=== PATIENT | male | born 1995 | race Caucasian/White ===

== ENCOUNTER 2024-12-22 08:37 | Outpatient (AMB) | payer BC, SELFPAY ==
--- NOTE | 2024-12-22 08:40 | MHC.OFFVIS ---
Vital Signs 12/22/24 08:45 Height 5 ft 10 in Weight 198 lb BMI 28.4 BP 119/61 Blood Pressure Location Lt brachial Position Sitting Pulse 73 Pulse Oximetry (%) 97 Oxygen Delivery Method Room Air Intake Visit Reasons: Gastroesophageal reflux disease (GERD) Intake Note: Patient new consult for Gastroesophageal reflux disease (GERD). Patient cc: acid reflux with burning sensation on and off, occasional diarrhea and some irritation on the back of his throat. 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 Accompanied by: Self / Same As Patient Allergies cat dander (cats) Allergy (Intermediate, Verified 12/22/24 08:47) Sneezing dog dander Allergy (Intermediate, Verified 12/22/24 08:47) Sneezing Seasonal Allergies Allergy (Intermediate, Verified 12/22/24 08:47) Unknown Medication List - Last Reconciled 12/22/24 by Amina Michelle CNP bupropion HCl XL 300 mg PO DAILY cholecalciferol (vitamin D3) 25 mcg PO DAILY fexofenadine 180 mg PO DAILY fluticasone propionate 50 mcg/actuation (Flonase Allergy Relief) 2 sprays intranasal DAILY lisdexamfetamine 30 mg PO DAILY HPI HPI Gastroesophageal reflux disease (GERD): Details: Patient is a 29-year-old male with PMH of asthma, ADHD, anxiety, depression, seasonal allergies and GERD . Referred by PCP for further evaluation of GERD. Ramakrishna has experienced acid reflux since his teenage years. He has been managing it with omeprazole for the past 10 years, taking 20mg daily. Recently, his symptoms have worsened, especially over the past year or two, but he has occasionally increased the dose to twice daily without significant relief. He supplements with famotidine or antacids roughly three to four times a week. Ramakrishna notes a possible correlation between starting Vyvanse and an increase in heartburn. Eating food before taking Vyvanse helps. He experiences mild, occasional regurgitation without frequent food or liquid reflux. He has a chronic cough that may be related to acid reflux, but no difficulty swallowing or shortness of breath. No significant changes in bowel movements besides occasional constipation and diarrhea with certain foods, like tomato sauce. History of previously elevated LFTs noted on one occasion; abdominal US at that time was unremarkable per PCP records. Repeat LFTs subsequently normalized per patient, with most recent labs within the current year reported as normal. No ongoing hepatic symptoms or concerns. Patient denies: fever/chills, n/v, appetite changes, dysphasia, cardiopulmonary symptoms, unintentional wt loss, ab pain or melena/hematochezia. Social History - Diet: Generally consumes chicken, rice, lisa peppers, pasta with tomato sauce, ground pork, peanut butter crackers, water - Alcohol Use: Infrequent, about once a month, typically beer or similar, three to four drinks - Tobacco Use: None - Drug Use: Occasional use of THC and CBD gummies for anxiety, less frequent since starting Vyvanse - Occupation: Works from home - family hx as below - denies personal hx of CA - significant cardiopulmonary history -tolerated anesthesia in the past without difficulty. [facility] Medical History (Updated 12/22/24 @ 09:46 by Amina Michelle CNP) Asthma Acid reflux Surgical History Hx of nasal septoplasty Family History Mother Allergic rhinitis Father Urticaria Fibromyalgia Sister Allergic rhinitis Fibromyalgia Asthma Social History Household Members: None Alcohol intake: never Patient Tobacco Use Status: Never used Tobacco Substance Use Type: Marijuana Physical Exam Vital Signs: Last Vital Signs Pulse 73 12/22/24 08:45 BP 119/61 12/22/24 08:45 Pulse Ox 97 12/22/24 08:45 Oxygen Delivery Method Room Air 12/22/24 08:45 BMI result Body Mass Index 28.4 Assessment & Plan Assessment & Plan (1) Acid reflux: Code(s): K21.9 - Gastro-esophageal reflux disease without esophagitis Category: Medical Qualifiers: Esophagitis presence: esophagitis presence not specified Qualified Code(s): K21.9 - Gastro-esophageal reflux disease without esophagitis Plan: longstanding, worsening reflux symptoms despite chronic PPI therapy, with incomplete response to dose escalation and adjunctive H2RA/antacids. Chronicity and partial response warrant further evaluation for complications (e.g., erosive esophagitis, Small?s) and consideration of PPI class switch for tachyphylaxis. Additional Tests: Schedule upper endoscopy to assess for mucosal changes, rule out complications (Small?s, erosive esophagitis, stricture). Medications: - Discontinue omeprazole. - Start pantoprazole 20mg PO QD; may increase to 40mg QD after 2 weeks if inadequate response. - Continue famotidine PRN for breakthrough symptoms, preferably at bedtime. Encouraged to take pantoprazole as prescribed, taken at least 30-60 minutes before a meal. Education on GERD prevention : -Advised against heavy meals; encouraged small, frequent meals instead of large ones. - Instructed to remain upright for 2?3 hours after eating. - Advised to avoid late-night meals, spicy foods, caffeine, alcohol, known dietary triggers, and tight-fitting clothing. - Emphasis placed on gradual implementation of lifestyle changes to improve adherence and symptom control. (2) Asthma: Code(s): J45.909 - Unspecified asthma, uncomplicated Category: Medical Qualifiers: Asthma severity: unspecified severity Asthma persistence: unspecified Asthma complication type: uncomplicated Qualified Code(s): J45.909 - Unspecified asthma, uncomplicated Plan: History of asthma, currently asymptomatic and not requiring medication. Chronic cough likely related to GERD. Additional Tests: None indicated at this time. Medications: None required. Lifestyle Modifications: Monitor for new or worsening respiratory symptoms; report if present. Follow-Up: With PCP as needed for respiratory changes. (3) Bruise: Code(s): T14.8XXA - Other injury of unspecified body region, initial encounter Plan: Localized ecchymosis post-phlebotomy to left AC region, no signs of infection. Additional Tests/Medications: None required. Lifestyle Modifications: Monitor for signs of infection (erythema, warmth, swelling, pain); follow up with PCP if these develop. Plan follow up after endoscopy or sooner as needed Time: I spent a total of 35 minutes on the date of encounter which includes: Preparing to see the patient (reviewed previous documentation, test results and medical history) Performing a medically appropriate exam and/or evaluation Ordering medications, tests, and procedures Documenting clinical information in the health record Medications: New pantoprazole Take on tablet daily, can increase to two tablets daily if not effective after two weeks. 20 mg PO DAILY 90 tabs 0RF Coding Level of Care Code New Pt New Pt Level 3 (86878) Patient Type New Diagnoses Gastroesophageal reflux disease, unspecified whether esophagitis present K21.9 Esophagitis presence: esophagitis presence not specified Uncomplicated asthma, unspecified asthma severity, unspecified whether persistent J45.909 Asthma severity: unspecified severity Asthma persistence: unspecified Asthma complication type: uncomplicated Bruise T14.8XXA
[2024-12-22 08:45] VITALS: BP 119/61; PULSE 73; O2SAT 97; BMI 28.4
== END 2024-12-22 09:30 | disposition home or self-care (01) ==
LOC: HO.HGI 08:37
PROVIDERS: PCP Internal Medicine; Visit Provider Nurse Practitioner Family
DX: K21.9 Gastro-esophageal reflux disease without esophagitis (principal); J45.909 Unspecified asthma, uncomplicated; T14.8XXA Other injury of unspecified body region, initial encounter
CPT/HCPCS: 99203

== ENCOUNTER → 2024-12-22 08:37 | Outpatient (BNVA) | payer BC, SELFPAY | PROVIDERS: PCP Internal Medicine; Visit Provider Nurse Practitioner Family ==

== ENCOUNTER 2025-03-12 10:03 | Day surgery (SDC) | payer BC, SELFPAY ==
[2025-03-08 14:24] VITALS: BMI 28.4
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
--- NOTE | 2025-03-12 11:19 | MHC.SHP ---
Pre-Procedural Eval Section A - 24 Hr Update-Section A only Date of Service: 03/12/25 Section B - Complete if H&P > 30 days Chief Complaint: gerd, Relevant Family History (Specify if Yes): No Relevant Social History: None Present Medications: see Short Stay Collaborative assessment Medical History: Significant History (Asthma Acid reflux) History of Previous Operations: Relevant previous surgery/procedure and date(s) (Hx of nasal septoplasty) Allergies: Allergies Allergy/AdvReac Type Severity Reaction Status Date / Time cat dander (cats) Allergy Intermediate Sneezing Verified 12/22/24 08:47 dog dander Allergy Intermediate Sneezing Verified 12/22/24 08:47 Seasonal Allergies Allergy Intermediate Unknown Verified 12/22/24 08:47 Review of Systems Sugical H&P ROS: Negative: Constitution, Cardiovascular and Respiratory and Yes, Specify: Gastrointestinal (heartburn) Exam Surgical H&P Exam: Normal: Heart, Normal: Lungs, Normal: Extremities and Normal: Abdomen Plan Diagnosis/Plan: Unchanged I have reviewed the history and physical and performed a pertinent physical examination on my patient. No changes have occurred unless specified. Time Spent With Patient Time: Total time managing care of this patient today ____ minutes.
[2025-03-12 11:33] VITALS: BMI 27.8
[2025-03-12 11:45] VITALS: BP 127/79; PULSE 81; RESP 18; TEMP 36.6; O2SAT 99
[2025-03-12] MEDS: Lactated Ringers 1,000 ML 80 ML IVCONT (11:45)
--- NOTE | 2025-03-12 12:48 | HO.ANESPROP2 ---
[facility] Active Problems Active Problems: All Active Problems (Updated 12/22/24 @ 09:46 by Amina Michelle CNP) Asthma (Acute) Acid reflux (Acute) Past Medical History Medical History Asthma Acid reflux Functional capacity: independent ambulation Family History Family History Mother Allergic rhinitis Father Urticaria Fibromyalgia Sister Allergic rhinitis Fibromyalgia Asthma Family history of problems with anesthesia: No Surgical History Surgical History Hx of nasal septoplasty History of Problems with Anesthesia: No Social History Social History Household Members: None Are you a primary rn care manager to a significant other at home: No Do you presently have visiting nurse or other home services: No Alcohol intake: never Patient Tobacco Use Status: Never used Tobacco Substance Use Type: Marijuana Substance Use Frequency: Occasionally Have you been hit, kicked, punched, or otherwise hurt by someone within the past year? If so, by whom?: No Are you DNR?: No Advance Directives: No Advance Directives Information Provided: Yes Poor oral hygiene: No Meds Allergies Allergy/AdvReac Type Severity Reaction Status Date / Time cat dander (cats) Allergy Intermediate Sneezing Verified 03/12/25 11:36 dog dander Allergy Intermediate Sneezing Verified 03/12/25 11:36 Seasonal Allergies Allergy Intermediate Unknown Verified 03/12/25 11:36 Active Medications: Current Medications Lactated Ringer's (Lr) 1,000 mls @ 80 mls/hr IVCONT .[id number] JEAN CLAUDE Last Admin: 03/12/25 11:45 Dose: 80 mls/hr Home Medications ?Medication ?Instructions ?Recorded ?Confirmed ?Last Taken ?Type bupropion HCl 300 mg 24 hr tablet, 300 mg PO DAILY 12/22/24 03/12/25 Unknown History extended release cholecalciferol (vitamin D3) 25 25 mcg PO DAILY 12/22/24 03/12/25 Unknown History mcg (1,000 unit) capsule fexofenadine 180 mg tablet 180 mg PO DAILY 12/22/24 03/12/25 Unknown History fluticasone propionate 50 2 spray intranasal DAILY 12/22/24 03/12/25 Unknown History mcg/actuation nasal spray,suspension (Flonase Allergy Relief) lisdexamfetamine 50 mg capsule 50 mg PO DAILY 03/12/25 03/12/25 Unknown History Exam Height,Weight and Vital Signs: Height 5 ft 10 in Weight 194 lb 0.108 oz Last Vital Signs Temp 97.9 F 03/12/25 11:45 Pulse 81 03/12/25 11:45 Resp 18 03/12/25 11:45 BP 127/79 03/12/25 11:45 Pulse Ox 99 03/12/25 11:45 O2 Del Method Room Air 03/12/25 11:45 Airway Mallampati Class: II TM Dist: >3cm Neck ROM: Full Loose/Missing/Broken Teeth: No Heart: RRR Lungs: CTA Assessment and Plan Final Anesthetic Review Family History of Problems with Anesthesia: No History of Problems with Anesthesia: No NPO: Yes ASA Class: II Final Preanesthetic Review: No Changes in Pt Med Stat, Meds/Allgs Chart Reviewed, Consent Obtained/Reviewed and Anes Risks/Benef Reviewed Patient Risk: Low Procedure Risk: Low Anesthetic Plan Anesthetic Plan: MAC: Disposition: Standard PACU
--- NOTE | 2025-03-12 13:37 | W.PM.OPN ---
Operative Note Operative Note Date of Service: 03/12/25 Narrative: FLEXIBLE TRANSORAL UPPER GASTROINTESTINAL ENDOSCOPY WITH BIOPSIES AND SNARE POLYPECTOMY OF GASTRIC POLYP Pre-op diagnosis: GERD Post-op diagnosis: GERD, Gastritis, gastric polyps Endoscopist:? Josep Benoit MD Anesthesia:?MAC UPPER ENDOSCOPY Consent: Indications for the procedure and potential complications of bleeding, perforation, reaction to medications and missed diagnosis were discussed with the patient and informed consent was obtained. Instrument: Olympus GIF H 190 mid size upper endoscope Monitoring: Vital signs and clinical assessment, continuous EKG monitoring, Pulse oximetry, Carbon Dioxide monitoring and blood pressure monitoring were done throughout the procedure. Procedure: The patient was placed in the left lateral decubitis position and pre-procedure medications were administered and a bite block was placed. The endoscope was inserted into the mouth and advanced under direct vision to the third part of duodenum. A careful inspection was made as the upper endoscope was withdrawn including a retroflexed examination of the proximal stomach; Findings and interventions are described below. Findings: Larynx: Normal Esophagus: GE junction at 40 cms. No esophagitis. Irregular Z line - biopsied to check for Barretts. Biopsies were obtained from distal esophagus to check for esophagitis. Stomach: A few 4-5 mm benign appearing polyps in the stomach, A 15 mm polyp was removed from the distal body with a hot snare and retrieved with a Rogers net. Moderate diffuse gastric erythema - biopsies were obtained from the antrum. Grade 2 flap valve on retroflexed examination of the cardia. Duodenum: Normal bulb and descending duodenum Intervention: Biopsies as noted above Impression and Post Procedure Diagnosis: Endoscopy Findings: ESOPHAGUS: Irregular Z line - biopsied to check for Barretts. STOMACH: Diffuse gastritis and benign-appearing gastric polyps. DUODENUM: Normal Plan: Pt has a FU appointment on 04/12/25 with Amina Michelle NP. Above findings were reviewed with the patient and relevant handouts were given and the discharge area. BIOPSIES SHOWED: A. Stomach, antrum, biopsy: Gastric antral mucosa within normal limits; negative for Helicobacter pylori, intestinal metaplasia and dysplasia. B. Stomach, body, biopsy: Gastric body mucosa within normal limits; negative for Helicobacter pylori, intestinal metaplasia and dysplasia. C. Stomach, polyp, polypectomy: Fundic gland polyp. D. Gastroesophageal junction, biopsy: Gastric cardia-type mucosa with mild chronic inflammation; no squamous mucosa seen; negative for intestinal metaplasia and dysplasia. E. Esophagus, distal, biopsy: Squamous mucosa within normal limits; negative for inflammation (including intraepithelial eosinophils), fungal organisms, intestinal metaplasia and dysplasia.
[2025-03-12 13:42] VITALS: BP 126/51; PULSE 81; RESP 16; TEMP 36.4; O2SAT 98
[2025-03-12 13:55] VITALS: BP 111/62; PULSE 83; RESP 18; TEMP 36.3; O2SAT 95
== END 2025-03-12 14:33 | disposition home or self-care (01) ==
PROVIDERS: PCP Internal Medicine; Visit Provider Internal Medicine Gastroenterology
PROC: 0DJ08ZZ Inspection of Upper Intestinal Tract, Via Natural or Artificial Opening Endoscopic (ICD-10-PCS; CPT 43235; principal; 2025-03-12 12:00)
DX: K21.9 Gastro-esophageal reflux disease without esophagitis (principal); K31.7 Polyp of stomach and duodenum; K29.60 Other gastritis without bleeding; J45.909 Unspecified asthma, uncomplicated; F12.90 Cannabis use, unspecified, uncomplicated
CPT/HCPCS: 43251; 43239; 88305; 88313; 88342; J2003; J2704

== ENCOUNTER → 2025-03-12 10:03 | Outpatient (BNV) | payer BC, SELFPAY | PROVIDERS: PCP Internal Medicine; Visit Provider Internal Medicine Gastroenterology | DX: K21.9 Gastro-esophageal reflux disease without esophagitis (principal); K29.70 Gastritis, unspecified, without bleeding; K31.7 Polyp of stomach and duodenum | CPT/HCPCS: 43239; 43251 ==

== ENCOUNTER 2025-04-12 12:58 | Outpatient (AMB) | payer BC, SELFPAY ==
--- NOTE | 2025-04-12 13:07 | A.OFFVIS_ITS ---
Vital Signs 04/12/25 13:08 Height 5 ft 10 in Weight 185 lb BMI 26.5 BP 112/63 Blood Pressure Location Lt brachial Position Sitting Pulse 89 Pulse Oximetry (%) 98 Oxygen Delivery Method Room Air Intake Visit Reasons: s/p EGD Cy Intake Note: Patient follow upie for acid reflux and EGD results Patient cc: acid reflux and denies any other GI issues for today. 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 Persistent daily reflux sxs despite med trials, requesting review of mgmt and further tx options. Pt has ongoing reflux sxs the majority of days, often requiring rescue acid suppression. Dietary modifications trialed (increased bananas, oatmeal, avoidance of spicy/acidic foods, tomatoes, onions, carbonation, alcohol), w/ mild improvement at best. Pippa herbal tea exacerbated sxs?discontinued. Compliance w/ omeprazole 40 mg QAM remains high; formotidine taken intermittently BID when symptomatic, but not routinely QHS as instructed. Previously trialed pantoprazole w/ increased sxs, switched back to omeprazole. No dysphagia, weight appears possibly decreased (~10 lbs per chart, pt uncertain but noted smaller meals recently). Bowel habits unchanged (soft, regular, 3?4x/day), improved ease of BM w/ increase fiber. No constipation. No hospitalizations, flares, or new alarming GI sxs reported. [facility] Medical History (Updated 04/12/25 @ 14:06 by Amina Michelle CNP) Asthma Acid reflux Surgical History History of esophagogastroduodenoscopy (EGD) Hx of nasal septoplasty Family History Mother Allergic rhinitis Father Urticaria Fibromyalgia Sister Allergic rhinitis Fibromyalgia Asthma Social History Household Members: None Are you a primary child care nurse to a significant other at home: No Do you presently have visiting nurse or other home services: No Alcohol intake: never Patient Tobacco Use Status: Never used Tobacco Substance Use Type: Marijuana Review of Systems Const Reports as per HPI ENT Reports as per HPI Card Reports as per HPI Resp Reports as per HPI GI Reports as per HPI Reports as per HPI Physical Exam Vital Signs: Last Vital Signs Pulse 89 04/12/25 13:08 BP 112/63 04/12/25 13:08 Pulse Ox 98 04/12/25 13:08 Oxygen Delivery Method Room Air 04/12/25 13:08 BMI result Body Mass Index 26.5 Const General: healthy appearing, no acute distress and well developed Nutritional Appearance: average body habitus Orientation/consciousness: patient oriented x3 HEENT Head: Yes normal to inspection, Yes normocephalic and Yes atraumatic Face and sinus: Yes normal facial exam Eyes General: appearance normal, both eyes and all related structures Neck Neck: Yes normal visual inspection Resp Effort & Inspection: normal respiratory effort, able to speak in complete sentences, no tracheal deviation and symmetric chest movement Cardio Jugular venous distension: no JVD GI Inspection: Yes normal to inspection and No distended Palpation (GI): Soft to palpation, not firm, nontender and No hepatosplenomegaly present Auscultation: normal bowel sounds Neuro General: patient oriented x3 Gait exam (Neuro): Normal gait present Psych Appearance: grossly normal Mental Status: mental status grossly normal Speech and movement: Normal speech and movement present Affect: normal affect Attitude: cooperative Thought process: Normal thought process present Thought content: Normal thought content present Insight: Good insight present (Psych) Judgement: Good judgement present (Psych) Assessment & Plan Assessment & Plan (1) Acid reflux: Comment: EGD -Fundic gland polyp, GERD, gastritis Code(s): K21.9 - Gastro-esophageal reflux disease without esophagitis Category: Medical Qualifiers: Esophagitis presence: esophagitis presence not specified Qualified Code(s): K21.9 - Gastro-esophageal reflux disease without esophagitis Plan: Sxs persistent, suboptimally controlled; mild relief w/ lifestyle mods; failures on pantoprazole/esomeprazole; omeprazole most effective of options trialed. Poor adherence to nightly famotidine;EGD reassuring for no ulcer/malignancy. Additional Testing: - barium swallow study to r/o sliding hiatal hernia ( to discuss with pt via portal) - monitor for weight trend and alarming sxs. Medications: - Continue omeprazole 40 mg PO QAM. - Initiate formotidine 40 mg PO QHS scheduled nightly (not PRN); reinforce daily dosing. - Add sucralfate 1g tab PO BID PRN for breakthrough sxs (education re timing w/ other meds/antacids). - Dexlansoprazole considered but not covered by insurance. Lifestyle Recommendations: - Maintain avoidance of triggers: spicy, acidic, fried, fatty foods, carbonation, alcohol. - Continue smaller, more frequent meals. - Remain upright after meals, avoid overeating. - Weight monitoring at home; encourage gradual weight loss as tolerated. - Trial wedge pillow for nocturnal sxs elevation. - Avoid tight clothing; continue regular activity and hydration. - Handout provided re: dietary/lifestyle modifications for reflux. Referrals/Coordination: - No new referrals; discuss surgical fundoplication only if refractory to optimized medical/lifestyle mgmt. Follow-Up Plan: - RTC in 3 mo. - Portal access for new/worsening or alarm sxs (dysphagia, hematemesis, weight loss >10%, persistent vomiting). Plan Follow-up in 3 months or sooner as needed Time: I spent a total of 30 minutes on the date of encounter which includes: Preparing to see the patient (reviewed previous documentation, test results and medical history) Performing a medically appropriate exam and/or evaluation Ordering medications, tests, and procedures Documenting clinical information in the health record Medications: New sucralfate Take on tablet two times daily as needed. Take an empty stomach. Avoid antacids within 30 minutes. 1 g PO BID 90 tabs 1RF Coding Level of Care Code New Pt Est Pt Level 3 (96946) Patient Type New Diagnoses Gastroesophageal reflux disease, unspecified whether esophagitis present K21.9 Esophagitis presence: esophagitis presence not specified
[2025-04-12 13:08] VITALS: BP 112/63; PULSE 89; O2SAT 98; BMI 26.5
== END 2025-04-12 13:47 | disposition home or self-care (01) ==
LOC: HO.HGI 12:59
PROVIDERS: PCP Internal Medicine; Visit Provider Nurse Practitioner Family
DX: K21.9 Gastro-esophageal reflux disease without esophagitis (principal)
CPT/HCPCS: 99213